=== PATIENT | female | born 1985 | race Caucasian/White ===

== ENCOUNTER 2020-05-23 09:33 | Inpatient (IN) | payer OTHER ==
[~2020-05-23 09:33] MED LIST: ABREVA2 GM TOP; AMBIEN5 MG PO; ATIVAN1 MG PO; BELSOMRA20 MG PO; BENTYL10 MG PO; CARDURA2 MG PO; COMPAZINE10 MG PO; ELAVIL50 MG PO; FLORANEX TABLE1 EACH PO; HYDROCODON-ACE1 EAC6 PO; HYDROXYZINE PA100 MG PO; IMITREX100 MG PO; NEURONTIN300 MG PO; NICODERM CQ1 EAC1 TD; NORCO 5-325 TA1 EACH PO; NORVASC10 MG PO; PHENERGAN25 M1 PO; PROMETHEGA12.5 MG/SU PR; PROTONIX 40MG T40 MG PO; PROZAC20 MG PO; SEROQUEL 100MG100 MG PO; TESSALON PERLE100 MG PO; TOPAMAX100 MG PO; TRANSDERM-SCOP1 EACH TD; VENTOLIN HFA IN18 GM INH; VISTARIL50 MG PO; ZANAFLEX4 M1 PO
[2020-05-23 10:43] LABS: BILIRUBIN NEGATIVE (NEGATIVE); BLOOD 3+ Ery/uL (NEGATIVE); CLARITY HAZY (CLEAR); COLOR YELLOW (YELLOW); GLUCOSE (U) NORMAL (NORMAL); LEUKOCYTES 3+ Leu/uL (NEGATIVE); NITRITE POSITIVE (NEGATIVE); PROTEIN NEGATIVE (NEGATIVE); SPECIFIC GRAVITY 1.015 (1.001-1.030); UROBILINOGEN 0.2 mg/dL (0.2-1.0); pH 6.5 (5.0-9.0)
[2020-05-23 10:53] LABS: URINARY RBC 20-50; URINARY WBC 20-50
[2020-05-23 10:54] LABS: BACTERIA 2+
[2020-05-23 11:17] LABS: BASOPHIL 0.4 % (0-2); EOSINOPHIL 1.1 % (0-5); HCT 43.2 % (37.0-47.0); LYMPHOCYTE 22.6 % (15-48); MCH 27.4 pg (25.0-31.0); MCHC 30.1 g/dL (32.0-36.0); MCV 91.1 fL (78.0-100.0); MPV 10.5 fL (6.0-9.5); NEUTROPHIL 68.2 % (41-80); NRBC 0; PLT 235 K/uL (150-400); RBC 4.74 M/uL (4.20-5.40); RDW 14.1 % (11.5-14.0); WBC 7.6 K/uL (4.0-10.5)
[2020-05-23 11:30] LABS: ALBUMIN 3.4 g/dL (3.4-5.0); BILIRUBIN - TOTAL 0.1 mg/dL (0.2-1.0); BUN/CREAT RATIO (CALC) 14.9 RATIO; CREATININE 1.01 mg/dL (0.51-0.95); GLOBULIN (CALCULATION) 3.8 g/dL; POTASSIUM 4.2 mmol/L (3.5-5.1); TOTAL PROTEIN 7.2 g/dL (6.4-8.2)
[2020-05-23 11:48] LABS: CORONAVIRUS 2019 SARS-COV-2 NEGATIVE (NEGATIVE); INFLUENZA A NAA NEGATIVE (NEGATIVE)
[2020-05-23] MEDS ORDERED: PROMETHEGA12.5 MG/SU PR (15:33)
[2020-05-23] MEDS ORDERED: NEURONTIN300 MG PO (15:33)
[2020-05-23] MEDS ORDERED: WELLBUTRIN XL150 MG PO (15:35)
--- NOTE | 2020-05-23 15:46 | NUR ---
05/23/20 1415 ORDER RECEIVED FOR [facility] INSERTION. PROCEDURE EXPLANIED TO PATIENT. PT PREPPED AND DRAPED IN STERILE FASHION. THE PT'S left UPPER ARM BASILIC VEIN WAS VISUALIZED USING THE SITE RITE 6 ULTRA SOUND. A 21 GA NEEDLE WAS USED. GOOD BLOOD RETURN WAS NOTED. THE GUIDE WIRE THREADED EASILY. THE NEEDLE WAS REMOVED AND THE MIDLINE CATHETER WAS PLACED OVER THE WIRE. THE WIRE AND SHEATH WERE REMOVED. GOOD BLOOD RETURN WAS NOTED. A CONNECTOR WAS FLUSHED AND PLACED OVER THE END OF THE CATHETER. A STAT LOCK WAS PLACED ON THE CATHETER AND A STERILE BIOPATCH WAS ALSO PLACED ON THE INSERTION SITE. A STERILE TEGADERM WAS PLACED OVER THE MIDLINE CATHETER. PT TOLERATED WELL. PT HAS A 20GA 10 CM POWERGLIDE MIDLINE CATHETER. GOOD FOR 29 DAYS. THIS IS NOT A CENTRAL LINE. REPORT TO WILL PATEL (ER)
[2020-05-24 03:10] LABS: BASOPHIL 0.3 % (0-2); EOSINOPHIL 1.2 % (0-5); HCT 41.3 % (37.0-47.0); LYMPHOCYTE 28.8 % (15-48); MCH 28.4 pg (25.0-31.0); MCHC 31.5 g/dL (32.0-36.0); MCV 90.2 fL (78.0-100.0); MONOCYTE 9.8 % (0-12); MPV 10.4 fL (6.0-9.5); NEUTROPHIL 59.4 % (41-80); NRBC 0; PLT 194 K/uL (150-400); RBC 4.58 M/uL (4.20-5.40); RDW 14.4 % (11.5-14.0); WBC 5.8 K/uL (4.0-10.5)
[2020-05-24 03:23] LABS: ALBUMIN 3.1 g/dL (3.4-5.0); BILIRUBIN - TOTAL 0.4 mg/dL (0.2-1.0); BUN/CREAT RATIO (CALC) 13.7 RATIO; CREATININE 0.95 mg/dL (0.51-0.95); GLOBULIN (CALCULATION) 3.7 g/dL; POTASSIUM 4.1 mmol/L (3.5-5.1); TOTAL PROTEIN 6.8 g/dL (6.4-8.2)
--- NOTE | 2020-05-24 04:59 | NUR ---
NURSE WENT INTO PT.S ROOM AT 240 AM TO GET BLOOD. PT WAS VERY LETHARGIC, COULD BARELY OPEN EYES, AND COULDN'T REALLY FOLLOW COMMANDS. THE NURSE TOOK HER VITALS AND THEY WERE WITHIN NORMAL LIMITS. NURSE CALLED SPOUSE TO SEE IF HER BEING SO LETHARGIC IS NORMAL DUE TO THE TYPE AND AMOUNT OF NIGHTTIME MEDICATIONS SHE GETS. THE SPOUSE SAID HER BEING VERY LETHARGIC IS NORMAL SHE USUALLY WAKES UP MORE AROUND 700 AM.
[2020-05-24 10:18] LABS: BILIRUBIN - DIRECT 0.1 mg/dL (0.00-0.20); BILIRUBIN - TOTAL 0.3 mg/dL (0.2-1.0); GLOBULIN (CALCULATION) 3.5 g/dL; TOTAL PROTEIN 6.5 g/dL (6.4-8.2)
[2020-05-25 10:02] LABS: BASOPHIL 0.4 % (0-2); EOSINOPHIL 3.4 % (0-5); HCT 38.3 % (37.0-47.0); MCH 28.3 pg (25.0-31.0); MCHC 31.3 g/dL (32.0-36.0); MCV 90.3 fL (78.0-100.0); MONOCYTE 9.7 % (0-12); MPV 10.3 fL (6.0-9.5); NEUTROPHIL 56.7 % (41-80); NRBC 0; PLT 192 K/uL (150-400); RBC 4.24 M/uL (4.20-5.40); RDW 14.6 % (11.5-14.0); WBC 4.7 K/uL (4.0-10.5)
[2020-05-25 10:25] LABS: BILIRUBIN - TOTAL 0.2 mg/dL (0.2-1.0); BUN/CREAT RATIO (CALC) 7.1 RATIO; CREATININE 0.98 mg/dL (0.51-0.95); GLOBULIN (CALCULATION) 3.7 g/dL; POTASSIUM 3.9 mmol/L (3.5-5.1); TOTAL PROTEIN 6.7 g/dL (6.4-8.2)
--- NOTE | 2020-05-25 13:41 | NUR ---
PT LIVES WIHT SPOUSE AND KIDS; PLEASE ADVISE OF ANY DISCHARGE NEEDS
[2020-05-26 05:31] LABS: BASOPHIL 0.2 % (0-2); EOSINOPHIL 2.9 % (0-5); HCT 39.6 % (37.0-47.0); HGB 12.1 g/dl (12.5-16.0); LYMPHOCYTE 34.9 % (15-48); MCH 27.8 pg (25.0-31.0); MCHC 30.6 g/dL (32.0-36.0); MONOCYTE 10.5 % (0-12); MPV 10.5 fL (6.0-9.5); NEUTROPHIL 50.9 % (41-80); NRBC 0; PLT 195 K/uL (150-400); RBC 4.35 M/uL (4.20-5.40); RDW 14.3 % (11.5-14.0); WBC 4.8 K/uL (4.0-10.5)
[2020-05-26 05:41] LABS: INR 0.99 (0.9-1.2); PROTHROMBIN TIME 12.4 SECONDS (11.4-13.6)
[2020-05-26 05:53] LABS: ALBUMIN 3.1 g/dL (3.4-5.0); BILIRUBIN - TOTAL 0.1 mg/dL (0.2-1.0); BUN/CREAT RATIO (CALC) 10.8 RATIO; CREATININE 1.02 mg/dL (0.51-0.95); GLOBULIN (CALCULATION) 3.8 g/dL; POTASSIUM 3.6 mmol/L (3.5-5.1); TOTAL PROTEIN 6.9 g/dL (6.4-8.2)
[2020-05-27 07:07] LABS: BASOPHIL 0.4 % (0-2); EOSINOPHIL 2.8 % (0-5); HCT 37.3 % (37.0-47.0); HGB 11.4 g/dl (12.5-16.0); LYMPHOCYTE 27.2 % (15-48); MCH 27.3 pg (25.0-31.0); MCHC 30.6 g/dL (32.0-36.0); MCV 89.2 fL (78.0-100.0); MONOCYTE 10.9 % (0-12); MPV 10.4 fL (6.0-9.5); NEUTROPHIL 57.9 % (41-80); NRBC 0; PLT 203 K/uL (150-400); RBC 4.18 M/uL (4.20-5.40); RDW 14.2 % (11.5-14.0)
[2020-05-27 07:23] LABS: ALBUMIN 2.9 g/dL (3.4-5.0); BILIRUBIN - TOTAL 0.1 mg/dL (0.2-1.0); BUN/CREAT RATIO (CALC) 9.7 RATIO; CREATININE 1.03 mg/dL (0.51-0.95); GLOBULIN (CALCULATION) 3.3 g/dL; POTASSIUM 3.7 mmol/L (3.5-5.1); TOTAL PROTEIN 6.2 g/dL (6.4-8.2)
[2020-05-27 08:07] LABS: HBSAG SCREEN Negative (Negative); HEP A AB, IGM Negative (Negative); HEP B CORE AB, IGM Negative (Negative); HEP C VIRUS AB 0.1 (0.0-0.9)
[2020-05-28 05:12] LABS: BASOPHIL 0.4 % (0-2); EOSINOPHIL 3.1 % (0-5); HGB 11.7 g/dl (12.5-16.0); LYMPHOCYTE 27.6 % (15-48); MCH 27.5 pg (25.0-31.0); MCHC 30.8 g/dL (32.0-36.0); MCV 89.4 fL (78.0-100.0); MONOCYTE 10.5 % (0-12); MPV 10.4 fL (6.0-9.5); NEUTROPHIL 57.3 % (41-80); NRBC 0; PLT 209 K/uL (150-400); RBC 4.25 M/uL (4.20-5.40); RDW 14.7 % (11.5-14.0); WBC 5.4 K/uL (4.0-10.5)
[2020-05-28 05:41] LABS: ALBUMIN 2.9 g/dL (3.4-5.0); BILIRUBIN - TOTAL 0.1 mg/dL (0.2-1.0); GLOBULIN (CALCULATION) 3.8 g/dL; POTASSIUM 3.8 mmol/L (3.5-5.1); TOTAL PROTEIN 6.7 g/dL (6.4-8.2)
[2020-05-28] MEDS ORDERED: HYDROCODON-ACE1 EAC6 PO (12:41)
[2020-05-28] MEDS ORDERED: INVANZ 1GM1 GM/VIAL IV (12:41)
--- NOTE | 2020-05-28 18:22 | NUR ---
PT. D/C HOME. SHE REQUESTED [facility] FOR IV [facility]. SENT INFO THROUGH [facility]. [facility] ACCEPT[facility] THE REFERRAL. SENT THE SCRIPT TO [facility].
--- NOTE | 2020-05-31 16:21 | NUR ---
ADVISED BY [facility] WITH [facility] THAT PT. WILL NOT ANSWER HER PHONE NOR WILL SHE CONTACT THE HH. ATTEMPTED TO CALL PT. [facility], BUT HAD TO LEAVE A MESSAGE FOR A RETURN CALL.
[2020-09-10] MEDS ORDERED: LEVAQUIN500 MG PO (10:40)
== END 2020-05-28 16:04 | disposition home health service (06) | DRG 872 ==
LOC: FER 09:33 → FMS 12:39
PROVIDERS: Allergy & Immunology Allergy; Internal Medicine; Nurse Practitioner; ADMIT Internal Medicine
PROC: 05HY33Z Insertion of Infusion Device into Upper Vein, Percutaneous Approach (ICD-10-PCS; principal; 2020-05-23)
DX: A41.9 Sepsis, unspecified organism (principal); N12 Tubulo-interstitial nephritis, not specified as acute or chronic; R79.89 Other specified abnormal findings of blood chemistry; F41.1 Generalized anxiety disorder; F32.9 Major depressive disorder, single episode, unspecified; Z20.822 Contact with and (suspected) exposure to COVID-19; I10 Essential (primary) hypertension; K75.81 Nonalcoholic steatohepatitis (NASH); Z88.8 Allergy status to other drugs, medicaments and biological substances; Z88.1 Allergy status to other antibiotic agents; Z88.0 Allergy status to penicillin; Z88.2 Allergy status to sulfonamides; Z88.5 Allergy status to narcotic agent; Z91.041 Radiographic dye allergy status; Z90.49 Acquired absence of other specified parts of digestive tract; Z98.51 Tubal ligation status; Z90.710 Acquired absence of both cervix and uterus; Z87.891 Personal history of nicotine dependence
CPT/HCPCS: 36415; 76705; 80053; 80074; 80076; 81001; 83690; 85025; 85610; 86140; 87076; 87088; 87186; C1751; J0780; J1170; J1335; J1642; J1650; J1956; J2550; J7030; J7120; U0002

== ENCOUNTER 2020-09-05 09:02 | Inpatient (IN) | payer OTHER ==
[~2020-09-05 09:02] MED LIST changes: +INVANZ 1GM1 GM/VIAL IV; +WELLBUTRIN XL150 MG PO
[2020-09-05 09:49] LABS: HCG (URINE) SCREEN NEGATIVE (NEGATIVE)
[2020-09-05 09:53] LABS: BILIRUBIN NEGATIVE (NEGATIVE); BLOOD 3+ Ery/uL (NEGATIVE); COLOR YELLOW (YELLOW); GLUCOSE (U) NORMAL (NORMAL); LEUKOCYTES 1+ Leu/uL (NEGATIVE); NITRITE POSITIVE (NEGATIVE); PROTEIN NEGATIVE (NEGATIVE); UROBILINOGEN 0.2 mg/dL (0.2-1.0)
[2020-09-05 09:55] LABS: CLARITY HAZY (CLEAR)
[2020-09-05 09:58] LABS: BACTERIA 4+
[2020-09-05 09:59] LABS: SQUAMOUS EPITHELIAL CELLS RARE; URINARY WBC TNTC
[2020-09-05 11:06] LABS: BASOPHIL 0.3 % (0-2); HCT 42.7 % (37.0-47.0); HGB 13.7 g/dl (12.5-16.0); LYMPHOCYTE 25.2 % (15-48); MCHC 32.1 g/dL (32.0-36.0); MCV 87.1 fL (78.0-100.0); MONOCYTE 7.3 % (0-12); MPV 10.5 fL (6.0-9.5); NEUTROPHIL 65.6 % (41-80); NRBC 0; PLT 237 K/uL (150-400); RDW 14.5 % (11.5-14.0)
[2020-09-05 11:10] LABS: ALBUMIN 3.5 g/dL (3.4-5.0); BILIRUBIN - TOTAL 0.3 mg/dL (0.2-1.0); BUN/CREAT RATIO (CALC) 12.4 RATIO; CREATININE 0.89 mg/dL (0.51-0.95); GLOBULIN (CALCULATION) 4.1 g/dL; POTASSIUM 4.1 mmol/L (3.5-5.1); TOTAL PROTEIN 7.6 g/dL (6.4-8.2)
--- NOTE | 2020-09-05 15:02 | NUR ---
1250 [facility] ORDERED FOR PATIENT TO GET IV ANTIBIOTICS, NO VENOUS ACCESS. PROCEDURE WAS EXPLAINED TO PT. PT PREPPED AND DRAPED IN STERILE FASHION. THE PT'S LEFT UPPER ARM BASILIC VEIN WAS VIAUALIZED USING THE [employer] 6 US MACHINE. A 21 GAUGE GUIDE NEEDLE WAS USED. GOOD BLOOD RETURN WAS NOTED. THE GUIDE WIRE THREADED EASILY. THE NEEDE WAS REMOVED AND THE MIDLINE CATHETER WAS PLACED OVER THE WIRE. THE WIRE AND SHEATH WERE REMOVED. GOOD BLOOD RETURN WAS NOTED. A CONNECTOR WAS FLUSHED AND PLACED OVER THE END OF THE CATHETER. A STAT LOCK WAS PLACED ON THE CATHETER AND A BIOPATCH WAS PLACED TOP OF THE INSERTION SITE. A STERILE TEGADERM WAS PLACED OVER THE MIDLINE CATHETER. PT TOLERATED THE PROCEDURE WELL. PT HAS A 20G 10 CM POWERGLIDE MIDLINE CATHETER. GOOD FOR 29 DAYS. THIS IS NOT A CENTRAL LINE. REPORT WAS GIVEN TO KATIE GRAY R.N. IN ER. THE PT'S STRETCHER WAS LOWERED BACK DOWN TO THE LOWEST LEVEL. SIDERAILS WERE UP X 2. PATIENT CALL LIGHT WAS WITHIN REACH.
[2020-09-06 06:13] LABS: HCT 41.4 % (37.0-47.0); MCH 27.9 pg (25.0-31.0); MCHC 31.4 g/dL (32.0-36.0); MCV 88.8 fL (78.0-100.0); MPV 10.6 fL (6.0-9.5); RBC 4.66 M/uL (4.20-5.40); RDW 14.5 % (11.5-14.0); WBC 7.8 K/uL (4.0-10.5)
[2020-09-06 06:21] LABS: BUN/CREAT RATIO (CALC) 16.2 RATIO; CREATININE 0.99 mg/dL (0.51-0.95); POTASSIUM 3.7 mmol/L (3.5-5.1)
--- NOTE | 2020-09-06 09:56 | NUR ---
MET WITH PT. SHE DOES NOT HAVE ANY DME. SHE IS INDPENDENT SHE REPORTS THAT SHE HAS A GOOD SUPPORT SYSTEM. PLEASE ADVISE OF ANY D/C NEEDS.
--- NOTE | 2020-09-06 14:15 | NUR ---
EVENING OR NIGHT NURSE SUPERVISOR REPORTS PATIENT WALKING IN THE HALLS [facility] GOWN ON AND ASKED THE NURSE TO MAKE SURE SHE DOES NOT LEAVE. APPROXIMATELY FIVE MINUTES LATER I OBSERVED PATIENT ENTERING HER ROOM FROM THE DISTANT END ON THE HALLWAY. HER 1400 MEDICINES WERE DEILVERED SHE PRESETNS NOTICABLY ALTERED. LETHARGIC BEHAVIOR, SLURRED SPEECH, DIFFICULTY KEEP THE EYES OPEN. PREVIOUS MEDICATION ADMINISTRATION INCONSISTENT WITH PRESENTATION. SHE ASKS FOR MORE PAIN MEDICINE. SHE WAS INFROMED THAT HER PAIN MEDICINE WAS GIVEN AT 1154 AND SHE WOULD BE DUE FOR THE NEXT DOSE AT 1754. 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 PUPILS 3MM PEERLA AND SLUGGISH. NO COMPLAINTS OF NUMBNESS OR TINGLING, FACE IS SYMMETRICAL.
--- NOTE | 2020-09-06 14:22 | NUR ---
MET WITH PT. ADVISED HER THAT I DO NOT HAVE A HH THAT WILL ACCEPT HER INSURANCE AND THAT SHE WILL NEED TO COME TO OUTPT INFUSION. PT. AGREED THAT SHE CAN START COMING TO THE INFUSION ON WEDNESDAY EVENING. PT. SIGNED CHOICE FORM FOR [facility]. ADVISED NURSETHONY.
--- NOTE | 2020-09-06 15:06 | NUR ---
ADVISED DR. LANDA OF THE NEED FOR THE OUTPT INFUSION ORDER. DR. LANDA TO WRITE ORDER. ADVISED NURSE
[2020-09-06 16:52] LABS: AMPHETAMINES NEGATIVE (NEGATIVE); BARBITURATES NEGATIVE (NEGATIVE); ECSTASY (MDMA) NEGATIVE (NEGATIVE); MARIJUANA (THC) NEGATIVE (NEGATIVE); METHADONE NEGATIVE (NEGATIVE); OPIATES POSITIVE (NEGATIVE); OXYCODONE NEGATIVE (NEGATIVE)
[2020-09-06 18:54] LABS: FOLIC ACID (SERUM) 15.6 ng/mL (8.6-58.9)
[2020-09-07 05:03] LABS: HCT 40.3 % (37.0-47.0); HGB 12.9 g/dl (12.5-16.0); MCH 28.5 pg (25.0-31.0); MPV 10.4 fL (6.0-9.5); RBC 4.53 M/uL (4.20-5.40); RDW 14.6 % (11.5-14.0); WBC 5.7 K/uL (4.0-10.5)
[2020-09-07 05:33] LABS: BUN/CREAT RATIO (CALC) 12.7 RATIO; CREATININE 1.1 mg/dL (0.51-0.95); POTASSIUM 4.1 mmol/L (3.5-5.1)
--- NOTE | 2020-09-08 03:41 | NUR ---
UNABLE TO OBTAIN LAB FROM [facility] , INFORMED LAB ([facility]) AND WILL HAVE [facility] ATTEMPT TO OBTAIN THIS AM.
[2020-09-08 08:13] LABS: HCT 36.1 % (37.0-47.0); HGB 11.6 g/dl (12.5-16.0); MCH 28.4 pg (25.0-31.0); MCHC 32.1 g/dL (32.0-36.0); MCV 88.5 fL (78.0-100.0); MPV 10.4 fL (6.0-9.5); RBC 4.08 M/uL (4.20-5.40); RDW 14.6 % (11.5-14.0)
[2020-09-08 08:29] LABS: BUN/CREAT RATIO (CALC) 12.7 RATIO; CREATININE 1.02 mg/dL (0.51-0.95); POTASSIUM 3.5 mmol/L (3.5-5.1)
[2020-09-09] MEDS ORDERED: IBUPROFEN400 MG PO (12:48)
[2020-09-09] MEDS ORDERED: DULCOLAX5 MG PO (12:48)
[2020-09-09] MEDS ORDERED: HYDROCODON-ACE1 EAC2 PO (12:48)
--- NOTE | 2020-09-09 15:50 | NUR ---
1415 PATIENT GIVEN D/C INSTRUCTIONS, [facility] CARE INTRUCTIONS AND APPOINTMENT TIMES. PT INSTRUCTED TO COME BACK FOR IV INFUSION TOMORROW AT 1 PM. PT VERBALIZED UNDERSTANDING OF ALL INSTRUCTIONS.
[2020-09-10] MEDS ORDERED: LEVAQUIN500 MG PO (10:40)
== END 2020-09-09 15:47 | disposition home or self-care (01) | DRG 690 ==
LOC: FER 09:02 → FMS 11:48
PROVIDERS: Emergency Medicine; ADMIT Hospitalist
PROC: 05HY33Z Insertion of Infusion Device into Upper Vein, Percutaneous Approach (ICD-10-PCS; principal; 2020-09-05)
DX: N39.0 Urinary tract infection, site not specified (principal); R31.9 Hematuria, unspecified; K31.84 Gastroparesis; R33.9 Retention of urine, unspecified; B96.1 Klebsiella pneumoniae [K. pneumoniae] as the cause of diseases classified elsewhere; N13.30 Unspecified hydronephrosis; N12 Tubulo-interstitial nephritis, not specified as acute or chronic; N13.4 Hydroureter; Z20.822 Contact with and (suspected) exposure to COVID-19; F41.1 Generalized anxiety disorder; F32.9 Major depressive disorder, single episode, unspecified; G40.909 Epilepsy, unspecified, not intractable, without status epilepticus; Z90.49 Acquired absence of other specified parts of digestive tract; Z90.710 Acquired absence of both cervix and uterus; Z82.49 Family history of ischemic heart disease and other diseases of the circulatory system; Z83.3 Family history of diabetes mellitus; Z81.8 Family history of other mental and behavioral disorders; Z87.891 Personal history of nicotine dependence; Z79.899 Other long term (current) drug therapy; Z91.041 Radiographic dye allergy status
CPT/HCPCS: 36415; 70450; 80048; 80053; 80305; 81001; 82140; 82607; 82746; 84703; 85025; 87076; 87088; 87186; 96372; C1751; J1335; J1642; J1885; J2550; J7030; Q0164; Q0169; U0002

== ENCOUNTER 2020-12-05 09:47 | Emergency (ER) | payer OTHER ==
[~2020-12-05 09:47] MED LIST changes: +DULCOLAX5 MG PO; +HYDROCODON-ACE1 EAC2 PO; +IBUPROFEN400 MG PO; +LEVAQUIN500 MG PO
[2020-12-05 11:17] LABS: BILIRUBIN NEGATIVE (NEGATIVE); BLOOD 3+ Ery/uL (NEGATIVE); CLARITY HAZY (CLEAR); COLOR YELLOW (YELLOW); GLUCOSE (U) NORMAL (NORMAL); LEUKOCYTES 3+ Leu/uL (NEGATIVE); NITRITE POSITIVE (NEGATIVE); PROTEIN NEGATIVE (NEGATIVE); UROBILINOGEN 0.2 mg/dL (0.2-1.0)
[2020-12-05 11:36] LABS: URINARY WBC TNTC
[2020-12-05 11:37] LABS: BACTERIA 4+
[2020-12-05 12:09] LABS: BASOPHIL 0.4 % (0-2); EOSINOPHIL 0.7 % (0-5); HCT 44.4 % (37.0-47.0); HGB 13.9 g/dl (12.5-16.0); MCH 28.2 pg (25.0-31.0); MCHC 31.3 g/dL (32.0-36.0); MCV 90.1 fL (78.0-100.0); MONOCYTE 7.5 % (0-12); MPV 10.7 fL (6.0-9.5); NEUTROPHIL 69.9 % (41-80); NRBC 0; PLT 220 K/uL (150-400); RBC 4.93 M/uL (4.20-5.40); RDW 13.8 % (11.5-14.0); WBC 8.2 K/uL (4.0-10.5)
[2020-12-05 12:34] LABS: ALBUMIN 3.6 g/dL (3.4-5.0); BILIRUBIN - TOTAL 0.2 mg/dL (0.2-1.0); BUN/CREAT RATIO (CALC) 12.2 RATIO; CREATININE 0.98 mg/dL (0.51-0.95); GLOBULIN (CALCULATION) 4.4 g/dL
[2020-12-05 12:35] LABS: IRON % SATURATION 15.9 %SAT (20-50)
[2020-12-05 12:47] LABS: LACTIC ACID 2.9 mmol/L (0.4-1.9)
[2020-12-05 12:59] LABS: HCG (URINE) SCREEN NEGATIVE (NEGATIVE)
[2020-12-05] MEDS ORDERED: COMPAZINE10 M1 PO (15:59)
[2020-12-05] MEDS ORDERED: NORCO 5-325 TA1 EACH PO (15:59)
== END 2020-12-05 16:28 | disposition home or self-care (01) ==
LOC: FER 09:47
PROVIDERS: Emergency Medicine
DX: N39.0 Urinary tract infection, site not specified (principal)
CPT/HCPCS: 36415; 80053; 81001; 83540; 83550; 83605; 83735; 84145; 84703; 85025; 87040; 87076; 87088; 87186; J0780; J1170; J1335; J2405; J7030

== ENCOUNTER 2021-05-29 08:15 | Emergency (ER) | payer OTHER ==
[~2021-05-29 08:15] MED LIST changes: +COMPAZINE10 M1 PO
[2021-05-29 11:18] LABS: BILIRUBIN NEGATIVE (NEGATIVE); BLOOD 3+ Ery/uL (NEGATIVE); COLOR YELLOW (YELLOW); GLUCOSE (U) NORMAL (NORMAL); LEUKOCYTES 2+ Leu/uL (NEGATIVE); NITRITE POSITIVE (NEGATIVE); PROTEIN NEGATIVE (NEGATIVE); UROBILINOGEN 0.2 mg/dL (0.2-1.0); pH 6.5 (5.0-9.0)
[2021-05-29 11:19] LABS: CLARITY HAZY (CLEAR)
[2021-05-29 11:29] LABS: BACTERIA 4+
[2021-05-29 11:30] LABS: SQUAMOUS EPITHELIAL CELLS RARE; URINARY RBC RARE
[2021-05-29 11:36] LABS: BASOPHIL 0.4 % (0-2); EOSINOPHIL 1.2 % (0-5); HCT 45.8 % (37.0-47.0); HGB 14.9 g/dl (12.5-16.0); LYMPHOCYTE 24.8 % (15-48); MCHC 32.5 g/dL (32.0-36.0); MCV 89.3 fL (78.0-100.0); MONOCYTE 7.4 % (0-12); MPV 10.8 fL (6.0-9.5); NEUTROPHIL 65.7 % (41-80); NRBC 0; PLT 272 K/uL (150-400); RBC 5.13 M/uL (4.20-5.40); RDW 13.4 % (11.5-14.0); WBC 7.7 K/uL (4.0-10.5)
[2021-05-29 11:50] LABS: BUN/CREAT RATIO (CALC) 11.4 RATIO; CREATININE 0.88 mg/dL (0.51-0.95); POTASSIUM 4.1 mmol/L (3.5-5.1)
[2021-05-29 12:00] LABS: CORONAVIRUS 2019 SARS-COV-2 NEGATIVE (NEGATIVE); INFLUENZA A NAA NEGATIVE (NEGATIVE)
[2021-05-29] MEDS ORDERED: PHENERGAN25 M1 PO (12:49)
== END 2021-05-29 15:03 | disposition home or self-care (01) ==
LOC: FER 08:15
PROVIDERS: Emergency Medicine
DX: N39.0 Urinary tract infection, site not specified (principal); R05.9 Cough, unspecified; R53.1 Weakness; R11.2 Nausea with vomiting, unspecified; Z88.0 Allergy status to penicillin; Z88.2 Allergy status to sulfonamides; Z88.1 Allergy status to other antibiotic agents; Z88.8 Allergy status to other drugs, medicaments and biological substances; Z91.041 Radiographic dye allergy status; Z20.822 Contact with and (suspected) exposure to COVID-19
CPT/HCPCS: 36415; 80048; 81001; 85025; 87076; 87088; 87186; J1885; Q0169; U0002

== ENCOUNTER 2022-02-08 00:47 | Day surgery (SDCO) | payer OTHER ==
[~2022-02-08] VITALS: Ht 162.6 cm; Wt 86.2 kg
[2022-02-08 01:37] LABS: BILIRUBIN NEGATIVE (NEGATIVE); BLOOD 3+ Ery/uL (NEGATIVE); COLOR YELLOW (YELLOW); GLUCOSE (U) NORMAL (NORMAL); LEUKOCYTES 3+ Leu/uL (NEGATIVE); NITRITE POSITIVE (NEGATIVE); PROTEIN TRACE (LOW) mg/dL (NEGATIVE); SPECIFIC GRAVITY >=1.030 (1.001-1.030); UROBILINOGEN 0.2 mg/dL (0.2-1.0); pH 6.5 (5.0-9.0)
[2022-02-08 01:43] LABS: CLARITY CLOUDY (CLEAR)
[2022-02-08 01:44] LABS: BACTERIA 4+; URINARY WBC TNTC
[2022-02-08 02:20] LABS: BASOPHIL 0.2 % (0-2); EOSINOPHIL 0.5 % (0-5); HCT 45.2 % (37.0-47.0); HGB 14.9 g/dl (12.5-16.0); MCH 29.1 pg (25.0-31.0); MCV 88.3 fL (78.0-100.0); MPV 10.4 fL (6.0-9.5); NRBC 0; PLT 229 K/uL (150-400); RBC 5.12 M/uL (4.20-5.40); WBC 9.3 K/uL (4.0-10.5)
[2022-02-08 02:46] LABS: BILIRUBIN - TOTAL 0.2 mg/dL (0.2-1.0); BUN/CREAT RATIO (CALC) 14.9 RATIO; CREATININE 0.94 mg/dL (0.51-0.95); GLOBULIN (CALCULATION) 4.3 g/dL; POTASSIUM 3.3 mmol/L (3.5-5.1); TOTAL PROTEIN 8.3 g/dL (6.4-8.2)
[2022-02-08 02:49] LABS: LACTIC ACID 0.7 mmol/L (0.4-1.9)
[2022-02-08] MEDS ORDERED: ELAVIL50 MG PO (05:54)
[2022-02-08] MEDS ORDERED: NITROFURANTOIN100 M1 PO (14:56)
[2022-02-08] MEDS ORDERED: NAPROSYN250 MG PO (15:19)
--- NOTE | 2022-02-08 15:21 | NUR ---
PT REPORTS PCP PRESCRIBING BOTH CIPRO AND MACROBID FOR UTI. PT CONFIRMS THAT RX WERE SENT TO [facility] IN [address]. RN SPOKE WITH [facility] THIS MORNING AND THEY REPORTED THAT NO ABX PRESCRIPTIONS HAD BEEN SENT IN BY PCP TO BE FILLED FOR PATIENT. RN CONFIRMED WITH [facility] AT 1515 THAT THEY HAD RECEIVED MACROBID RX THAT WAS PRESCRIBED BY DR. VENEGAS. RELAYED INFO TO PT AND INSTRUCTED HER TO [employer] RX ON HER WAY HOME FROM HOSPITAL THEY CLOSE AT 1800 AND SHE WILL NEED ANOTHER DOSE TONIGHT. PT VERBALIZED UNDERSTANDING BY REPEATING INSTRUCTIONS.
== END 2022-02-08 15:44 | disposition home or self-care (01) ==
LOC: FER 00:47 → FMS 04:05
PROVIDERS: Emergency Medicine; ADMIT Internal Medicine
DX: N30.01 Acute cystitis with hematuria (principal); E87.6 Hypokalemia; K31.84 Gastroparesis; I12.9 Hypertensive chronic kidney disease with stage 1 through stage 4 chronic kidney disease, or unspecified chronic kidney disease; N18.2 Chronic kidney disease, stage 2 (mild); K21.9 Gastro-esophageal reflux disease without esophagitis; F32.A Depression, unspecified; F41.9 Anxiety disorder, unspecified; F43.10 Post-traumatic stress disorder, unspecified; Z87.891 Personal history of nicotine dependence; Z88.0 Allergy status to penicillin; Z88.1 Allergy status to other antibiotic agents; Z88.2 Allergy status to sulfonamides; Z88.8 Allergy status to other drugs, medicaments and biological substances; Z91.013 Allergy to seafood; Z91.041 Radiographic dye allergy status
CPT/HCPCS: 36415; 80053; 81001; 83605; 84703; 85025; 87040; 87088; 94010; C9113; G0378; J0780; J1200; J1650; J1885; J2270; J2550; J7030; Q0169